=== PATIENT | female | born 1990 | race Caucasian/White ===

== ENCOUNTER 2017-07-06 23:49 | Emergency (ER) | payer BC, MEDICAID ==
[2017-07-07] MEDS ORDERED: Ondansetron 4 MG/2 ML SDV IVPUSH ONE (00:34)
[2017-07-07] MEDS ORDERED: Sodium Chloride 0.9% 1,000 ML IV SCH (00:45)
[2017-07-07] MEDS ORDERED: Ketorolac 30 MG/ML SDV IVPUSH ONE (01:10)
--- NOTE | 2017-07-07 02:17 | EDM.PDOC ---
ED HPI GENERAL MEDICAL PROBLEM - General Chief Complaint: Abdominal Pain Stated Complaint: ABDOMINAL PAIN Time Seen by Provider: 07/07/17 00:21 Source of Information: Reports: Patient, Family () History Limitations: Reports: No Limitations - History of Present Illness INITIAL COMMENTS - FREE TEXT/NARRATIVE: abdominal pain; this is a 27 year old female present to ER with , reports has been sick for 4 days with nausea, vomiting and diarrhea. was seen in Urgent Care but did not have any test. Tonight at 7:45 pm had a bout of vomiting about 5 to 10 times after eating a hamburger. reports has 4 children at home, who were sick, but they only had sx for one day , this is much worse. 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 - Past Surgical History HEENT Surgical History: Reports: Myringotomy w Tube(s) Female Surgical History: Reports: D&C Social & Family History - Tobacco Use Smoking Status *Q: Current Every Day Smoker Years of Tobacco use: 10 Packs/Tins Daily: 0.5 - Caffeine Use Caffeine Use: Reports: Coffee - Recreational Drug Use Recreational Drug Use: No ED ROS GENERAL - Review of Systems Review Of Systems: See Below Constitutional: Reports: Chills, Malaise, Fatigue HEENT: Reports: No Symptoms Respiratory: Reports: No Symptoms Cardiovascular: Reports: No Symptoms Endocrine: Reports: No Symptoms GI/Abdominal: Reports: Abdominal Pain, Diarrhea, Nausea, Vomiting : Reports: No Symptoms Musculoskeletal: Reports: No Symptoms Skin: Reports: No Symptoms Neurological: Reports: No Symptoms Psychiatric: Reports: No Symptoms ED EXAM, GI/ABD - Physical Exam Exam: See Below Exam Limited By: No Limitations General Appearance: Alert, WD/WN, No Apparent Distress, Other (appears sleepy) Eyes: Bilateral: Normal Appearance, EOMI Ears: Normal External Exam, Normal Canal, Hearing Grossly Normal, Normal TMs Nose: Normal Inspection, Normal Mucosa, No Blood Throat/Mouth: Normal Inspection, Normal Lips, Normal Teeth, Normal Gums, Normal Oropharynx, Normal Voice, No Airway Compromise Head: Atraumatic, Normocephalic Neck: Normal Inspection, Supple, Non-Tender, Full Range of Motion Respiratory/Chest: No Respiratory Distress, Lungs Clear, Normal Breath Sounds, No Accessory Muscle Use, Chest Non-Tender Cardiovascular: Normal Peripheral Pulses, Regular Rate, Rhythm, No Edema, No Gallop, No JVD, No Murmur, No Rub GI/Abdominal Exam: Normal Bowel Sounds, Soft, No Organomegaly, No Distention, No Abnormal Bruit, No Mass, Pelvis Stable, Tender (right side of abdomen). No: Guarding, Rigid, Rebound (Female) Exam: Deferred Rectal (Female) Exam: Deferred Back Exam: Normal Inspection, Full Range of Motion Extremities: Normal Inspection, Normal Range of Motion, Non-Tender, Normal Capillary Refill, No Pedal Edema Neurological: No Motor/Sensory Deficits Psychiatric: Normal Affect, Normal Mood Skin Exam: Warm, Dry, Intact, Normal Color, No Rash Lymphatic: No Adenopathy Course - Vital Signs Last Recorded V/S: Last Vital Signs Temp 37.5 C 07/07/17 00:20 Pulse 93 07/07/17 00:20 Resp 18 07/07/17 00:20 BP 117/78 07/07/17 00:20 Pulse Ox 98 07/07/17 00:20 - Orders/Labs/Meds Orders: Active Orders 24 hr Category Date Time Status Abdomen Comp [US] Stat Exams 07/07/17 01:09 Ordered Sodium Chloride 0.9% [Normal Saline] 1,000 ml Med 07/07/17 00:45 Active IV ASDIRECTED Medication Orders Sodium Chloride (Normal Saline) 1,000 mls @ 999 mls/hr IV ASDIRECTED MANNY Last Admin: 07/07/17 00:42 Dose: 999 mls/hr Labs: Laboratory Tests 07/07/17 07/07/17 07/07/17 Range/Units 00:40 00:40 00:45 WBC 14.6 H (4.5-11.0) K/uL RBC 4.89 (3.30-5.50) M/uL Hgb 14.4 (12.0-15.0) g/dL Hct 42.4 (36.0-48.0) % MCV 87 (80-98) fL MCH 29 (27-31) pg MCHC 34 (32-36) % Plt Count 243 (150-400) K/uL Neut % (Auto) 91 H (36-66) % Lymph % (Auto) 4 L (24-44) % [place] % (Auto) 4 (2-6) % Eos % (Auto) 1 L (2-4) % Baso % (Auto) 0 (0-1) % Sodium 141 (140-148) mmol/L Potassium 3.8 (3.6-5.2) mmol/L Chloride 105 (100-108) mmol/L Carbon Dioxide 25 (21-32) mmol/L Anion Gap 10.9 (5.0-14.0) mmol/L BUN 20 H (7-18) mg/dL Creatinine 0.7 (0.6-1.0) mg/dL Est Cr Clr Drug Dosing 99.86 mL/min Estimated GFR (MDRD) > 60 (>60) Glucose 94 (74-106) mg/dL Calcium 8.7 (8.5-10.1) mg/dL Total Bilirubin 0.5 (0.2-1.0) mg/dL AST 17 (15-37) U/L ALT 19 (12-78) U/L Alkaline Phosphatase 59 (46-116) U/L Total Protein 7.2 (6.4-8.2) g/dL Albumin 3.9 (3.4-5.0) g/dL Globulin 3.3 (2.3-3.5) g/dL Albumin/Globulin Ratio 1.2 (1.2-2.2) Urine Color Urine Appearance Urine pH (4.5-8.0) Ur Specific [place] (1.008-1.030) Urine Protein (NEGATIVE) mg/dL Urine Glucose (UA) (NEGATIVE) mg/dL Urine Ketones (NEGATIVE) mg/dL Urine Occult Blood (NEGATIVE) Urine Nitrite (NEGATIVE) Urine Bilirubin (NEGATIVE) Urine Urobilinogen (NORMAL) mg/dL Ur Leukocyte Esterase (NEGATIVE) Urine RBC (0-5) Urine WBC (0-5) Ur Epithelial Cells Amorphous Sediment Urine Bacteria Urine Mucus Urine HCG, Qual Urine Opiates Screen Negative (NEGATIVE) Ur Oxycodone Screen Negative (NEGATIVE) Urine Methadone Screen Negative (NEGATIVE) Ur Propoxyphene Screen Negative (NEGATIVE) Ur Barbiturates Screen Negative (NEGATIVE) Ur Tricyclics Screen Negative (NEGATIVE) Ur Phencyclidine Scrn Negative (NEGATIVE) Ur Amphetamine Screen Negative (NEGATIVE) U Methamphetamines Scrn Negative (NEGATIVE) Urine MDMA Screen Negative (NEGATIVE) U Benzodiazepines Scrn Negative (NEGATIVE) U Cocaine Metab Screen Negative (NEGATIVE) U Marijuana (THC) Screen Negative (NEGATIVE) 07/07/17 07/07/17 Range/Units 00:45 00:45 WBC (4.5-11.0) K/uL RBC (3.30-5.50) M/uL Hgb (12.0-15.0) g/dL Hct (36.0-48.0) % MCV (80-98) fL MCH (27-31) pg MCHC (32-36) % Plt Count (150-400) K/uL Neut % (Auto) (36-66) % Lymph % (Auto) (24-44) % [place] % (Auto) (2-6) % Eos % (Auto) (2-4) % Baso % (Auto) (0-1) % Sodium (140-148) mmol/L Potassium (3.6-5.2) mmol/L Chloride (100-108) mmol/L Carbon Dioxide (21-32) mmol/L Anion Gap (5.0-14.0) mmol/L BUN (7-18) mg/dL Creatinine (0.6-1.0) mg/dL Est Cr Clr Drug Dosing mL/min Estimated GFR (MDRD) (>60) Glucose (74-106) mg/dL Calcium (8.5-10.1) mg/dL Total Bilirubin (0.2-1.0) mg/dL AST (15-37) U/L ALT (12-78) U/L Alkaline Phosphatase (46-116) U/L Total Protein (6.4-8.2) g/dL Albumin (3.4-5.0) g/dL Globulin (2.3-3.5) g/dL Albumin/Globulin Ratio (1.2-2.2) Urine Color Yellow Urine Appearance Slightly cloudy Urine pH 5.0 (4.5-8.0) Ur Specific [place] 1.025 (1.008-1.030) Urine Protein Negative (NEGATIVE) mg/dL Urine Glucose (UA) Normal (NEGATIVE) mg/dL Urine Ketones 150 H (NEGATIVE) mg/dL Urine Occult Blood Negative (NEGATIVE) Urine Nitrite Negative (NEGATIVE) Urine Bilirubin Small (NEGATIVE) Urine Urobilinogen 1 (NORMAL) mg/dL Ur Leukocyte Esterase Negative (NEGATIVE) Urine RBC 0-5 (0-5) Urine WBC Not seen (0-5) Ur Epithelial Cells Few Amorphous Sediment Not seen Urine Bacteria Not seen Urine Mucus Many Urine HCG, Qual Negative Urine Opiates Screen (NEGATIVE) Ur Oxycodone Screen (NEGATIVE) Urine Methadone Screen (NEGATIVE) Ur Propoxyphene Screen (NEGATIVE) Ur Barbiturates Screen (NEGATIVE) Ur Tricyclics Screen (NEGATIVE) Ur Phencyclidine Scrn (NEGATIVE) Ur Amphetamine Screen (NEGATIVE) U Methamphetamines Scrn (NEGATIVE) Urine MDMA Screen (NEGATIVE) U Benzodiazepines Scrn (NEGATIVE) U Cocaine Metab Screen (NEGATIVE) U Marijuana (THC) Screen (NEGATIVE) Meds: Medications Generic Name Dose Route Start Last Admin Trade Name Freq PRN Reason Stop Dose Admin Sodium Chloride 1,000 mls @ 999 mls/hr 07/07/17 00:45 07/07/17 00:42 Normal Saline IV 999 mls/hr ASDIRECTED MANNY Administration Discontinued Medications Generic Name Dose Route Start Last Admin Trade Name Freq PRN Reason Stop Dose Admin Ketorolac Tromethamine 30 mg 07/07/17 01:10 Toradol IVPUSH 07/07/17 01:11 ONETIME ONE Ondansetron HCl 4 mg 07/07/17 00:34 07/07/17 00:42 Zofran IVPUSH 07/07/17 00:35 4 mg ONETIME ONE Administration - Re-Assessments/Exams Free Text/Narrative Re-Assessment/Exam: 07/07/17 02:28 labs; wbc elevated, ua, hcg, uds all negative imagining ultrasound of abdomen; negative for acute process IV fluids and IV Zofran; improved reviewd ultrasound and labs results; will discharge to home. no acute process Departure - Departure Time of Disposition: 02:29 Disposition: Home, Self-Care 01 Condition: Good Clinical Impression: Gastroenteritis - Discharge Information Instructions: Viral Gastroenteritis, Adult, [id number] Referrals: PCP,None [Primary Care Provider] - Forms: ED Department Discharge Care Plan Goals: Gastroenteritis -clear liquid diet, advance as tolerated -Phenergan 25 mg take 1-2 tab every 8 hours as needed for nausea and vomiting -rest follow up with Primary Care for recheck in the next 3 to 5 days return to clinic or ER for any worsen of symptoms or concerns. - Problem List & Annotations (1) Gastroenteritis SNOMED Code(s): 50763333 Code(s): K52.9 - NONINFECTIVE GASTROENTERITIS AND COLITIS, UNSPECIFIED Status: Acute Priority: High Current Visit: Yes - Problem List Review Problem List Initiated/Reviewed/Updated: Yes - My Orders Last 24 Hours: My Active Orders 07/07/17 00:45 Sodium Chloride 0.9% [Normal Saline] 1,000 ml IV ASDIRECTED 07/07/17 01:09 Abdomen Comp [US] Stat - Assessment/Plan Last 24 Hours: My Active Orders 07/07/17 00:45 Sodium Chloride 0.9% [Normal Saline] 1,000 ml IV ASDIRECTED 07/07/17 01:09 Abdomen Comp [US] Stat Plan: Gastroenteritis -clear liquid diet, advance as tolerated -Phenergan 25 mg take 1-2 tab every 8 hours as needed for nausea and vomiting -rest follow up with Primary Care for recheck in the next 3 to 5 days return to clinic or ER for any worsen of symptoms or concerns.
--- NOTE | 2017-07-07 08:20 | US ---
Liver within normal limits. Gallbladder unremarkable. No wall thickening. Negative sonographic Will 's sign. Pancreas unremarkable. Spleen within normal limits. Kidneys symmetric no hydronephrosis. Nor mal echotexture. Aorta is nonaneurysmal IVC is patent. No ascites fluid. Impression: 1. Unremarkable abdominal ultrasound.
== END 2017-07-07 02:24 | disposition home or self-care (01) ==
LOC: JP.ED 23:49
DX: K52.9 Noninfective gastroenteritis and colitis, unspecified (principal); Z88.2 Allergy status to sulfonamides; F17.210 Nicotine dependence, cigarettes, uncomplicated
CPT/HCPCS: 36415; 76700; 80053; 80305; 81001; 81025; 85025; 96361; 96374; 96375; 99284; J2405; J7040

== ENCOUNTER 2022-09-25 18:15 | Emergency (ER) | payer BC, MEDICAID, OTHER ==
[2022-09-25] MEDS ORDERED: Ketorolac 30 MG/ML SDV IM ONE (18:51)
[2022-09-25] MEDS ORDERED: Ondansetron 4 MG Tab.DIS PO ONE (18:51)
[2022-09-25 19:24] LABS: ESTIMATED GFR 122 mL/min (>60)
[2022-09-25 19:48] LABS: CORONAVIRUS COVID-19 NAA POSITIVE (NEGATIVE)
== END 2022-09-25 20:27 | disposition home or self-care (01) ==
LOC: JP.ED 18:15
DX: U07.1 COVID-19 (principal); Z72.0 Tobacco use
CPT/HCPCS: 0241U; 36415; 80053; 83605; 85025; 96372; 99283; 99284; J1885; Q0162